=== PATIENT | female | born 1990 | race Caucasian/White ===

== ENCOUNTER 2024-07-19 09:20 | Outpatient (AMB) | payer OTHER, SELFPAY ==
--- NOTE | 2024-07-19 09:28 | MHC.OFFWIV ---
Intake Vital Signs 07/19/24 09:32 Height 5 ft 8 in Weight 134 lb BMI 20.4 BP 110/70 Blood Pressure Location Rt brachial Position Sitting Pulse 72 Pulse Source Pulse Oximeter Temp 97.8 F Temp Source Oral Pulse Oximetry (%) 99 Oxygen Delivery Method Room Air Intake Visit Reasons: EP UTI? Intake Note: Patient here for frequent urination, burning that started 2-3 days. Patient Tobacco Use Status: Former Tobacco user Allergies latex Allergy (Mild, Verified 07/19/24 09:44) Hives Do you need a note to return to daycare/school/sports/work: No HPI HPI Comments History of Present Illness Details She presents to office with concern UTI 1/5 years post ; not nursing Onset yesterday am She tried fluids and cranberry juice + pink/blood tinge + hematuria + urgency and frequency No back pain or fever PFSH Social History Patient Tobacco Use Status: Former Tobacco user Review of Systems Const Denies chills and Denies fever(s) GI Denies abdominal pain, Reports nausea and Denies vomiting Reports hematuria, Reports dysuria, Reports pelvic pain, Reports urinary hesitancy and Reports urinary urgency Musc Denies myalgias Physical Exam Vital Signs: Last Vital Signs Temp 97.8 F 07/19/24 09:32 Pulse 72 07/19/24 09:32 BP 110/70 07/19/24 09:32 Pulse Ox 99 07/19/24 09:32 Oxygen Delivery Method Room Air 07/19/24 09:32 BMI result Body Mass Index 20.4 General: Non-toxic, NAD. Speaking full sentences. Skin: Warm dry throughout Eye: EOMI Respiratory: No distress or stridor ABdomen: Tenderness to palpation suprapubic region without guarding. No CVAT MSK: Full ROM extremities. Neurology: Alert. No aphasia or facial droop. Gait without abnormality Psych: Good mood and affect Assessment & Plan Assessment & Plan (1) Urinary tract infection: Code(s): N39.0 - Urinary tract infection, site not specified Qualifiers: Urinary tract infection type: acute cystitis Hematuria presence: with hematuria Qualified Code(s): N30.01 - Acute cystitis with hematuria Plan: HCG negative U/A: + leuks, nitrates blood No culture indicated Macrobid to pharmacy AZO prn OTC Call office with concerns Medications: New nitrofurantoin monohyd/m-cryst 100 mg (Macrobid) must administer with a meal/food 100 mg PO BID 14 caps 0RF Coding Level of Care Code Est Pt Level 3 (50687) Diagnoses Acute cystitis with hematuria N30.01 Urinary tract infection type: acute cystitis Hematuria presence: with hematuria
[2024-07-19 09:32] VITALS: BP 110/70; PULSE 72; TEMP 36.6; O2SAT 99; BMI 20.4
== END 2024-07-19 09:49 | disposition home or self-care (01) ==
PROVIDERS: PCP Internal Medicine; Visit Provider Physician Assistant
DX: Z13.9 Encounter for screening, unspecified (principal); Z32.02 Encounter for pregnancy test, result negative; N30.01 Acute cystitis with hematuria

== ENCOUNTER → 2024-07-19 09:20 | Outpatient (BNVA) | payer OTHER, SELFPAY | PROVIDERS: PCP Internal Medicine; Visit Provider Physician Assistant | DX: N30.01 Acute cystitis with hematuria (principal) | CPT/HCPCS: 81003; 81025 ==